=== PATIENT | female | born 1980 | race Caucasian/White ===

== ENCOUNTER 2017-10-24 05:02 | Emergency (ER) | payer SELFPAY ==
[~2017-10-24] VITALS: Ht 154.9 cm; Wt 83.7 kg
[~2017-10-24 05:02] MED LIST: TRUSPAK
[2017-10-24 05:18] VITALS: BP 114/59; PULSE 75; RESP 14; TEMP 98.1; O2SAT 96
[2017-10-24] MEDS ORDERED: IBUPROFEN 400 MG TAB PO ONE (05:30)
[2017-10-24] MEDS ORDERED: ACETAMINOPHEN 325 MG TAB PO ONE (05:30)
[2017-10-24] MEDS ORDERED: oxyCODONE/ACETAMINOPHEN 5 MG/325 MG TAB PO ONE (06:00)
[2017-10-24 06:49] LABS: BILIRUBIN, URINE NEG (NEG); BLOOD, URINE TRACE (NEG); GLUCOSE,URINE NEG (NEG); KETONE, URINE 80 OR GREATER mg/dL (NEG); NITRITE,URINE NEG (NEG); PH, URINE 6.5 (5.0-8.5); URINE COLOR YELLOW (YELLW/STRAW); URINE LEUKOCYTE ESTERASE NEG (NEG)
--- NOTE | 2017-10-24 06:50 | PD ---
HPI . Right leg pain Chief Complaint: Pain: Acute or Chronic Time Seen by Provider: 05:23 Travel History International Travel<30 days: No Contact w/Intl Traveler<30days: No Traveled to known affect area: No History of Present Illness HPI 37-year-old female 29 weeks , lifting her right leg to attempt to tie her right shoe and complains of having exquisite right lateral thigh pain afterwards. Patient denies any fevers chills sweats dysuria urgency frequency, abdominal pain, vaginal discharge or bleeding. Patient also denies any focal weakness numbness and tingling in her proximal or distal right leg. Patient also denies back pain or gluteal pain. [facility] Past Medical History Narrative Medical Past medical history reviewed Medical History: Denies Significant Hx Diminished Hearing: No Tetanus Vaccination: > 5 Years ?: LMP: 04/14/17 : 3 Para: 2 Social History Alcohol Use: No Tobacco Use: No Allergies-Medications (Allergen,Severity, Reaction): Coded Allergies: No Known Allergies (Unverified , 10/24/17) Reported Meds & Prescriptions Reported Meds & Active Scripts Active Reported Trust Dha ( 2/Iron/Folic Acid/Om3) 29 Mg Iron-1 Mg-250 Mg Combo..pkg Narrative Medication Allergies and medications reviewed Review of Systems Except as stated in HPI: all other systems reviewed are Neg General / Constitutional: No: Fever Eyes: No: Visual changes HENT: No: Headaches Cardiovascular: No: Chest Pain or Discomfort Respiratory: No: Shortness of Breath Gastrointestinal: No: Abdominal Pain Genitourinary: No: Dysuria Musculoskeletal: Positive: Myalgias, Pain, No: Arthralgias, Limited ROM, Weakness Skin: No Rash Neurologic: No: Weakness Psychiatric: No: Depression Endocrine: No: Polydipsia Hematologic/Lymphatic: No: Easy Bruising Physical Exam Narrative GENERAL: Awake alert and oriented 3 patient has complaints of severe pain but is otherwise in no acute distress SKIN: Warm and dry. Color is normal diaphoresis on his palate HEAD: Atraumatic. Normocephalic. EYES: Pupils equal and round. No scleral icterus. No injection or drainage. ENT: No nasal bleeding or discharge. Mucous membranes pink and moist. NECK: Trachea midline. No JVD. Supple full range of motion CARDIOVASCULAR: Regular rate and rhythm. S1-S2 no murmurs gallops RESPIRATORY: No accessory muscle use. Clear to auscultation. Breath sounds equal bilaterally. GASTROINTESTINAL: Abdomen soft, non-tender, nondistended. Hepatic and splenic margins not palpable. Gravid, heart measured by nursing staff is 169. Abdomen/uterus nontender MUSCULOSKELETAL: Extremities without clubbing, cyanosis, or edema. No obvious deformities. Tender right anterior and lateral thigh along the distribution of patient's pain. Some spasm in the area. Neurovascular intact. NEUROLOGICAL: Awake and alert. No obvious cranial nerve deficits. Motor grossly within normal limits. Five out of 5 muscle strength in the arms and legs. Normal speech. PSYCHIATRIC: Appropriate mood and affect; insight and judgment normal. Data Data Last Documented VS Vital Signs Date Time Temp Pulse Resp B/P (MAP) Pulse Ox O2 Delivery O2 Flow Rate FiO2 10/24/17 06:17 20 10/24/17 05:18 98.1 75 114/59 (77) 96 Orders Orders Urinalysis - C+S If Indicated (10/24/17 05:26) Ibuprofen (Motrin) (10/24/17 05:30) Oxycodone-Acetamin 5-325 Mg (Percocet (10/24/17 06:00) MDM Medical Decision Making Medical Screen Exam Complete: Yes Emergency Medical Condition: Yes Medical Record Reviewed: Yes Differential Diagnosis Muscle strain, leg pain Narrative Course Patient given ice, Percocet, and Motrin for her pain. Concerning patient's , discussed at length through diffuser operator, patient will have Tylenol for pain as outpatient. Diagnosis Primary Impression: Thigh pain, musculoskeletal Qualified Codes: M79.651 - Pain in right thigh Patient Instructions: General Instructions, Muscle Strain (ED) Additional Instructions: Ice affected areas. Tylenol/Motrin for pain. Follow-up with your doctor. Return for worsening Disposition: 01 DISCHARGE HOME Condition: Stable Asher Moran MD Oct 24, 2017 06:50
[2017-10-24 06:52] VITALS: BP 134/54; PULSE 92; RESP 20; O2SAT 98
[2017-10-24 07:01] LABS: WBC, URINE 0-2 /hpf (0-5)
[2017-10-24 07:02] LABS: MUCUS URINE FEW /lpf (OCC)
[2017-10-24 07:03] LABS: BACTERIA, URINE FEW /hpf
[2017-10-24 07:05] VITALS: BP 115/55; PULSE 76; RESP 18; O2SAT 96
== END 2017-10-24 07:39 | disposition home or self-care (01) ==
LOC: PHED 05:02
DX: O26.893 Other specified pregnancy related conditions, third trimester (principal); M79.651 Pain in right thigh; Z3A.29 29 weeks gestation of pregnancy
CPT/HCPCS: 81001; 99283